=== PATIENT | female | born 1990 | race African-American/Black ===

== ENCOUNTER 2025-06-03 10:05 | Day surgery (SDC) | payer OTHER ==
[~2025-06-03] VITALS: Ht 180.3 cm; Wt 86.0 kg
[2025-06-03] MEDS ORDERED: MIDAZOLAM INJ 2 MG/2 ML VIAL As Ordered ONE (10:40)
[2025-06-03] MEDS ORDERED: ACETAMINOPHEN 1000MG/100ML IV BAG As Ordered ONE (12:41)
[2025-06-03] MEDS: ceFAZolin SOD 2 GM IV ONCE IV ONE (13:09)
[2025-06-03] MEDS: LIDOCAINE 1% MDV 20 ML VIAL As Ordered ONE (13:18)
[2025-06-03] MEDS ORDERED: ONDANSETRON 4MG 2ML VIAL As Ordered ONE (13:24)
[2025-06-03] MEDS ORDERED: LIDOCAINE 2% 100 MG/5 ML SDV (FOR ANES.) As Ordered ONE (14:36)
[2025-06-03 16:06] VITALS: BP 113/81; TEMP 96.3; O2SAT 100
== END 2025-06-03 16:15 | disposition home or self-care (01) ==
LOC: M SDC 10:05
PROVIDERS: ATTEND Podiatrist Foot & Ankle Surgery
DX: M21.611 Bunion of right foot (principal); M20.11 Hallux valgus (acquired), right foot; S93.521A Sprain of metatarsophalangeal joint of right great toe, initial encounter; X58.XXXA Exposure to other specified factors, initial encounter
CPT/HCPCS: 28200; 28299; C1713; J0131; J0665; J0690; J2250; J2405; J3010